=== PATIENT | female | born 1990 | race Caucasian/White ===

== ENCOUNTER 2019-11-24 20:11 | Emergency (ER) | payer OTHER ==
[~2019-11-24] VITALS: Ht 160 cm; Wt 74.8 kg
[2019-11-24 20:18] VITALS: BP 132/84; Ht 160 cm; Wt 74.8 kg
== END 2019-11-24 21:29 | disposition home or self-care (01) ==
LOC: ED 20:11
DX: J11.1 Influenza due to unidentified influenza virus with other respiratory manifestations (principal)
CPT/HCPCS: 87804